=== PATIENT | male | born 1960 | race Caucasian/White ===

== ENCOUNTER → 2017-02-20 | Outpatient (CLI) | payer BC | END | disposition home or self-care (01) | LOC: LAB.O 02-19 14:30 | PROVIDERS: ATTEND Internal Medicine Endocrinology, Diabetes & Metabolism | DX: E29.1 Testicular hypofunction (principal); E11.9 Type 2 diabetes mellitus without complications; E78.2 Mixed hyperlipidemia ==

== ENCOUNTER → 2017-06-25 | Outpatient (CLI) | payer BC ==
--- NOTE | 2017-06-25 14:46 | RAD ---
EXAM DESCRIPTION: Shoulder,Right 2 or More Views CLINICAL HISTORY: PAIN IN RIGHT SHOULDER COMPARISON: None Available. TECHNIQUE: Four views of the right shoulder. FINDINGS: There is good internal and external rotation. There is no fracture or bone lesion. There are no significant degenerative changes observed. IMPRESSION: 1. Normal shoulder. Electronically signed by: Iban Siegel MD 06/25/2017 2:44 PM [employer] OPERATOR
== END | disposition home or self-care (01) ==
LOC: RAD 07:58
PROVIDERS: ATTEND Orthopaedic Surgery
DX: M25.511 Pain in right shoulder (principal)

== ENCOUNTER → 2017-07-04 | Outpatient (CLI) | payer BC ==
--- NOTE | 2017-07-09 07:06 | US ---
EXAM DESCRIPTION: Soft Tissue,Extremity CLINICAL HISTORY: 56 years Male, SUBCUTANEOUS MASS COMPARISON: None. FINDINGS: Ultrasound of the subcutaneous soft tissues at the left gluteal region was performed. The information provided on the imaging requisition states that the patient has a palpable lesion in the right gluteal region. With this in mind, there is a subtle 2 cm round mass in the subcutaneous fat over the left gluteal region which is isoechoic to adjacent soft tissue and could represent a small lipoma. The lesion lies approximately 2 cm deep to the skin surface. Color Doppler imaging shows no internal vascularity associated with the lesion. IMPRESSION: Questionable 2 cm avascular mass in the subcutaneous soft tissues over the left gluteal region as detailed above, probably representing a lipoma. Electronically signed by: Nba Sue MD 07/09/2017 7:05 AM ELECTRICAL DESIGN TECHNOLOGIST
== END | disposition home or self-care (01) ==
LOC: US 10:39
PROVIDERS: ATTEND Surgery
DX: R22.42 Localized swelling, mass and lump, left lower limb (principal)

== ENCOUNTER → 2017-08-09 | Outpatient (CLI) | payer BC | END | disposition home or self-care (01) | LOC: GMAB 10:21 | PROVIDERS: ATTEND Family Medicine | DX: Z00.01 Encounter for general adult medical examination with abnormal findings (principal) ==

== ENCOUNTER → 2018-02-19 | Outpatient (CLI) | payer BC ==
--- NOTE | 2018-02-19 11:58 | US ---
EXAM DESCRIPTION: Liver CLINICAL HISTORY: 57 years Male, FATTY LIVER COMPARISON: 05/26/2014 TECHNIQUE: Multiple transverse and longitudinal static sonographic images through the right upper quadrant of the abdomen were obtained. FINDINGS: Pancreas is not well seen due to overlying bowel gas. The liver demonstrates increased echogenicity with no intrahepatic biliary ductal dilatation. No focal masses are identified sonographically. The gallbladder is surgically absent. The common duct is nondilated and measures 5.4 mm. The right kidney measures 10.7 x 4.2 x 4 cm. No hydronephrosis or perinephric fluid collections. IMPRESSION: Hepatis steatosis versus parenchymal disease. Electronically signed by: Diego Torre MD 02/19/2018 11:57 AM CDT
== END ==
LOC: US 09:34
PROVIDERS: ATTEND Family Medicine
DX: K76.0 Fatty (change of) liver, not elsewhere classified (principal)

== ENCOUNTER → 2018-09-16 | Outpatient (CLI) | payer BC | LOC: GMAE 13:18 | PROVIDERS: ATTEND Family Medicine | DX: Z00.01 Encounter for general adult medical examination with abnormal findings (principal) ==

== ENCOUNTER 2018-10-04 05:38 | Day surgery (SDC) | payer BC ==
[2018-10-04] MEDS ORDERED: LIDOCAINE 1% 10 ML VIAL INJ ONE (07:00)
[2018-10-04] MEDS ORDERED: PROPOFOL 200 MG/20 ML VIAL IV ONE (07:00)
[2018-10-04] MEDS ORDERED: LACTATED RINGERS 1,000 ML ONE (07:23)
--- NOTE | 2018-10-04 13:38 | OP ---
DATE OF PROCEDURE: 10/04/18 PREPROCEDURE DIAGNOSIS: 1. Colorectal cancer screening. POSTPROCEDURE DIAGNOSIS: 1. Internal hemorrhoids. PROCEDURE: 1. Colonoscopy. SURGEON: Adi Holbrook MD COMPLICATIONS: No immediate complications. SEDATION: The patient was sedated via IV propofol by the Anesthesia Department. CONSENT: Prior to the procedure, risks, benefits and alternatives to the therapy were discussed with the patient. The risks included bleeding, infection, perforation and . The patient agreed to the procedure and signed a consent. PREPROCEDURE ANESTHESIA ASSESSMENT: An examination revealed no contraindication to sedation. Airway examination demonstrated a Mallampati class type 2, ASA grade assessment type 2. Throughout the procedure, the patient's vitals were closely monitored. PROCEDURE: The patient was placed in the left lateral decubitus position and a rectal examination was performed. The rectal examination was within normal limits. The Olympus colonoscope was passed in the anus, rectum, traversing the colon to the level of the cecum as identified by the appendiceal orifice. The scope was retracted and the mucosa was visualized. The entirety of the exam was performed under direct visualization. Retroflexion was performed in the rectum. Preparation quality was good. The withdrawal time was greater than 6 minutes. The patient tolerated the procedure well. FINDINGS: 1. Medium sized non-bleeding internal hemorrhoids were found on retroflexion. 2. Mild to moderate diverticulosis was found in the sigmoid colon. 3. Otherwise unremarkable exam. RECOMMENDATION: 1. Return the patient home. 2. Resume previous diet. 3. Repeat colonoscopy in 10 years for screening purposes. 4. Primary care physician may check FIT/Cologuard in 3 years' time. 5. Return to referring physicians office as previously scheduled. 6. Return to my office p.r.n. 7. Findings were discussed with the patient and family members. #[id number] [facility]
[2018-10-04 15:09] VITALS: BP 114/66; TEMP 98.1; O2SAT 97
== END 2018-10-04 12:55 | disposition home or self-care (01) ==
LOC: AMB 05:38
PROVIDERS: ATTEND Internal Medicine Gastroenterology
DX: Z12.11 Encounter for screening for malignant neoplasm of colon (principal); K57.30 Diverticulosis of large intestine without perforation or abscess without bleeding; K64.8 Other hemorrhoids; I10 Essential (primary) hypertension; E78.5 Hyperlipidemia, unspecified; E11.42 Type 2 diabetes mellitus with diabetic polyneuropathy; K21.9 Gastro-esophageal reflux disease without esophagitis; N40.0 Benign prostatic hyperplasia without lower urinary tract symptoms; G47.30 Sleep apnea, unspecified; E66.9 Obesity, unspecified; Z68.35 Body mass index [BMI] 35.0-35.9, adult; Z88.2 Allergy status to sulfonamides; Z91.018 Allergy to other foods; Z79.84 Long term (current) use of oral hypoglycemic drugs; Z79.899 Other long term (current) drug therapy
CPT/HCPCS: 00812; 36416; 45378; 82948; J3490; J7120

== ENCOUNTER 2018-10-11 17:35 | Emergency (ER) | payer BC, OTHER ==
--- NOTE | 2018-10-11 17:53 | ED.PDOC ---
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 Then after incident with dull pain on weight bearing on his right knee.No history of previous injury right knee. Occurred: just prior to arrival Pain - Lower Extremity: moderate: Right Knee Method of Injury: fell Improving Factors: rest Worsening Factors: movement Associated Symptoms: pain-see hpi Allergies/Adverse Reactions: Allergies Sulfa Antibiotics Allergy (Mild, Verified 10/04/18 11:08) Unknown Home Medications: Ambulatory Orders Caffeine 200 mg PO DAILY 10/04/18 Dapagliflozin Propanediol [Farxiga] 10 mg PO DAILY 10/04/18 Diclofenac [Zorvolex] 35 mg PO DAILY 10/04/18 Dutasteride [Avodart] 0.5 mg PO DAILY 10/04/18 Fenofibrate Micronized [Fenofibrate] 134 mg PO DAILY 10/04/18 Gabapentin [Neurontin] 300 mg PO DAILY 10/04/18 Linagliptin [Tradjenta] 5 mg PO DAILY 10/04/18 Loratadine [Claritin] 10 mg PO DAILY 10/04/18 Losartan Potassium 50 mg PO DAILY 10/04/18 Metformin HCl [Metformin HCl ER (Osmotic] 2,000 mg PO DAILY 10/04/18 Montelukast [Singulair] 10 mg PO DAILY 10/04/[address]eprazole [Omeprazole Dr] 20 mg PO DAILY 10/04/18 Review of Systems - Review of Systems Constitutional: States: no symptoms reported EENTM: States: no symptoms reported Respiratory: States: no symptoms reported Cardiology: States: no symptoms reported Gastrointestinal/Abdominal: States: no symptoms reported Musculoskeletal: States: see HPI Neurological: States: no symptoms reported All other Systems: Reviewed and Negative, No Change from Baseline Past Medical History (General) - Patient Medical History Hx Congestive Heart Failure: No Hx Diabetes: Yes - GLUCOSE PREOP 155 Hx MRSA: No Family Medical History - Family History Father Family History: Unknown Physical Exam - Physical Exam General Appearance: Alert, Comfortable, No apparent distress Eyes, Ears, Nose, Throat: normal ENT inspection Neck: supple, normal inspection Cardiovascular/Respiratory: regular rate, rhythm, no M/R/G, normal peripheral pulses, normal breath sounds Gastrointestinal/Abdominal: non-tender, no organomegaly Back: no CVA tenderness, no vertebral tenderness Thigh/Hip: normal inspection, non-tender, no evidence of injury, normal ROM Leg: normal inspection, non-tender, no evidence of injury, normal ROM Knee: normal inspection, pain - medial aspect knee, soft tissue tenderness - medial side Ankle: normal inspection, non-tender, no evidence of injury, normal ROM Foot: normal inspection, non-tender, no evidence of injury, normal ROM Neuro/Tendon: normal sensation, normal motor functions, no evidence tendon injury Mental Status: alert, oriented x 3 Skin: normal color, warm/dry Progress - Progress Progress: 10/11/18 19:09 Discus X-ray result findings on right knee no fracture - EKG/XRAY/CT XRAY: knee - right -no fracture noted Departure - Departure Clinical Impression: Right medial knee pain Fall Qualifiers: Encounter type: initial encounter Qualified Code(s): W19.XXXA - Unspecified fall, initial encounter Contusion of knee, right Qualifiers: Encounter type: initial encounter Qualified Code(s): S80.01XA - Contusion of right knee, initial encounter Time of Disposition: 19:11 Disposition: Discharge to Home or Self Care Departure Forms: ED Discharge - Pt. Copy, Patient Portal Self Enrollment Instructions: Contusion (DC) Referrals: CARLOS ANTONIO MD [Primary Care Provider] - 1-2 Weeks Home Medications: Ambulatory Orders Caffeine 200 mg PO DAILY 10/04/18 Dapagliflozin Propanediol [Farxiga] 10 mg PO DAILY 10/04/18 Diclofenac [Zorvolex] 35 mg PO DAILY 10/04/18 Dutasteride [Avodart] 0.5 mg PO DAILY 10/04/18 Fenofibrate Micronized [Fenofibrate] 134 mg PO DAILY 10/04/18 Gabapentin [Neurontin] 300 mg PO DAILY 10/04/18 Linagliptin [Tradjenta] 5 mg PO DAILY 10/04/18 Loratadine [Claritin] 10 mg PO DAILY 10/04/18 Losartan Potassium 50 mg PO DAILY 10/04/18 Metformin HCl [Metformin HCl ER (Osmotic] 2,000 mg PO DAILY 10/04/18 Montelukast [Singulair] 10 mg PO DAILY 10/04/18 [address]eprazole [Omeprazole Dr] 20 mg PO DAILY 10/04/18 Additional Instructions: Ice pack to affected area 10-15 minutes 3 x a day during waking hours only until better;Follow up with Work Comp MD for re check;Continue with Tramadol 50 mg 3 x a day for pain as needed
--- NOTE | 2018-10-11 18:57 | RAD ---
EXAM DESCRIPTION: Knee,Right 2 or More Views CLINICAL HISTORY: 57 years Male pain COMPARISON: None TECHNIQUE: AP, lateral and sunrise views of the right knee are obtained. FINDINGS: OSSEOUS: There is no evidence of acute fracture or osteolytic/osteoblastic lesions. The joint spaces are preserved. There is no evidence of subluxation/dislocation. There is slight dorsal patellar osteophytosis. There is no evidence of marginal erosive changes to suggest an inflammatory arthritis. SOFT TISSUE: There is no significant soft tissue swelling or mass. No evidence of significant soft tissue calcifications. No radiopaque foreign bodies. There is no evidence of a suprapatellar effusion. IMPRESSION: No acute osseous abnormalities. Remainder of findings as described above. Electronically signed by: Marcia Morrison MD 10/11/2018 6:54 PM [facility]
[2018-10-11 19:08] VITALS: TEMP 98.5; O2SAT 94
[2018-10-11] MEDS ORDERED: traMADol HCL 50 MG TAB PO ONE (19:11)
[2018-10-11] MEDS ORDERED: traMADol HCL 50 MG (ER DISP) # 6 TABS PO ONE (19:11)
[2018-10-11 19:28] VITALS: BP 124/85
== END 2018-10-11 19:29 | disposition home or self-care (01) ==
LOC: ER 17:35
DX: S80.01XA Contusion of right knee, initial encounter (principal); E11.9 Type 2 diabetes mellitus without complications; Z79.84 Long term (current) use of oral hypoglycemic drugs; Z79.899 Other long term (current) drug therapy; Z88.2 Allergy status to sulfonamides; W01.0XXA Fall on same level from slipping, tripping and stumbling without subsequent striking against object, initial encounter; Y99.0 Civilian activity done for income or pay; Y92.69 Other specified industrial and construction area as the place of occurrence of the external cause

== ENCOUNTER → 2020-09-13 | Outpatient (CLI) | payer BC | LOC: GMAE 14:13 | PROVIDERS: ATTEND Family Medicine | DX: Z00.00 Encounter for general adult medical examination without abnormal findings (principal) ==

== ENCOUNTER → 2020-10-11 | Outpatient (CLI) | payer BC ==
--- NOTE | 2020-10-11 10:32 | RAD ---
2 radiographs right hip. Single radiograph pelvis Indication: HIP PAIN Comparison: None Impression: Mild bilateral hip osteoarthritis with joint space narrowing and mild acetabular roof osteophyte formation. No acute fracture the pelvis or right hip. 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 Lower lumbar disc disease. Electronically signed by: Tez Dickens MD 10/11/2020 10:31 AM [facility]
--- NOTE | 2020-10-11 10:33 | RAD ---
2 radiographs right hip. Single radiograph pelvis Indication: HIP PAIN Comparison: None Impression: Mild bilateral hip osteoarthritis with joint space narrowing and mild acetabular roof osteophyte formation. No acute fracture the pelvis or right hip. 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 Lower lumbar disc disease. Electronically signed by: Tez Dickens MD 10/11/2020 10:31 AM [facility]
== END ==
LOC: RAD 08:20
PROVIDERS: ATTEND Orthopaedic Surgery
DX: M16.0 Bilateral primary osteoarthritis of hip (principal); M47.898 Other spondylosis, sacral and sacrococcygeal region; M51.36 Other intervertebral disc degeneration, lumbar region